=== PATIENT | female | born 1960 | race Hispanic/Latino ===

== ENCOUNTER 2018-02-26 14:21 | Emergency (ER) | payer OTHER, SELFPAY ==
[2018-02-26 14:25] VITALS: BP 148/89; PULSE 101; RESP 21; TEMP 36.4; O2SAT 99
--- NOTE | 2018-02-26 14:28 | ED.NEUROSD ---
HPI - Neuro Symptoms/Deficit General Chief Complaint: Neuro Symptoms/Deficit Stated Complaint: cant see, terrible headache, pressure on right eye Time Seen by Provider: 02/26/18 14:27 Source: patient Mode of arrival: wheelchair Limitations: no limitations History of Present Illness HPI Narrative: Patient is a 58-year-old female who stated that several hours prior to arrival she had a onset of a right-sided headache. She also complains of double vision and also pressure behind her right eye. She states she had similar symptoms a couple days ago but it lasted a very short period of time. Initially was reported that the patient was on anticoagulation however this was not confirmed on the patient does not know if she is taking any blood thinners. She states that the symptoms today were very similar to the symptoms she had a couple days ago however lasted much longer. Before today she had never had any symptoms like this. No prior interventions prior to arrival. Patient states nothing makes the symptoms worse or better. Review of Systems Constitutional Denies fever(s), Denies frequent falls, Reports headache(s), Denies lethargy and Denies malaise Eyes Reports diplopia, Denies irritation, Denies itchy eyes, Denies loss of vision, Denies seeing flashes, Denies photophobia and Denies spots in vision Comments: Pain behind the right eye ENT Ears, Nose, Mouth, and Throat: Denies dysphagia, Denies vertigo, Denies dizziness, Denies ear discharge, Denies facial pain, Reports headache(s), Denies disequilibrium, Denies sinus pain, Denies sinus pressure and Denies sore throat Cardiovascular Denies chest pain, Denies syncope, Denies leg edema, Denies palpitations and Denies dyspnea Respiratory Denies cough and Denies dyspnea Gastrointestinal Gastrointestinal: Denies abdominal pain, Denies dysphagia, Denies nausea and Denies vomiting Genitourinary Denies dysuria Musculoskeletal Denies myalgias and Denies arthralgias Integumentary/Breasts Denies rash Neurologic Denies confusion, Denies vertigo, Denies dizziness, Denies syncope, Denies frequent falls, Reports headache(s), Denies focal weakness, Denies loss of vision, Denies radicular pain, Denies sensory deficit, Denies paresthesias and Denies disequilibrium Psychiatric Denies confusion Endocrine Denies palpitations Hematologic/Lymphatic Denies easy bleeding and Denies easy bruising Allergic/Immunologic Denies itchy eyes PFSH Medical History Hypertension (Acute) Surgical History No pertinent past surgical history (Acute) Social History lives independently: Yes Exam Initial Vital Signs Initial Vital Signs: Vital Signs Temperature 97.6 F 02/26/18 14:25 Pulse Rate 101 H 02/26/18 14:25 Respiratory Rate 21 02/26/18 14:25 Blood Pressure 148/89 H 02/26/18 14:25 Pulse Oximetry 99 02/26/18 14:25 Const General: cooperative, comfortable, well developed, well groomed and No acute distress Orientation: alert, awake and oriented x3 Limitations: mental status not altered HENMT Head: normal to inspection and normocephalic Ears: hearing grossly normal bilaterally Nose: external nose normal Face and sinus: normal facial exam Eyes Conjunctivae: conjunctivae normal Sclera: sclerae normal Pupils: PERRL EOM: EOM intact bilaterally Other: Patient with binocular diplopia. Her symptoms resolved with covering each eye independently. No nystagmus. With covering of the left eye patient's symptoms resolved. Right eye does not move. When I uncover the left eye it does appear that the left eye is in a superior gaze which then improved somewhat but causes double vision. When I cover her right eye or double vision resolves. With uncovering of the right eye there is no deviation. Resp Effort & Inspection: normal respiratory effort Auscultation: clear to auscultation bilaterally Cardio Rate: regular rate Rhythm: regular rhythm Pulses: radial pulses present GI Inspection: normal to inspection and non-distended Palpation: soft Skin General: no rashes or lesions noted Neuro General: alert, awake and oriented x3 Cranial Nerves: other (Please see I section for description of I findings. Otherwise cranial nerves unremarkable) Cognition: normal cognition Speech: speech normal Gait: ataxic Motor: muscle tone normal throughout Sensory Exam: no sensory deficits noted Extrem General: normal to inspection and capillary refill normal Psych Appearance: grossly normal and well kempt Course Orders Ordered: ED Orders 02/26/18 14:29 CT head/brain wo con Stat 02/26/18 14:50 Basic Metabolic Panel Stat Complete Blood Count AUTO DIFF Stat Partial Thromboplastin Time Stat Prothrombin Time INR Stat 02/26/18 15:44 MR head/brain wo/w con Stat Discontinued Medications Acetaminophen (Tylenol) 975 mg PO NOW ONE Stop: 02/26/18 15:45 Last Admin: 02/26/18 15:55 Dose: 975 mg Diazepam (Valium) 5 mg PO NOW ONE Stop: 02/26/18 15:52 Last Admin: 02/26/18 17:08 Dose: Not Given Diphenhydramine HCl (Benadryl) 50 mg IV NOW ONE Stop: 02/26/18 15:58 Last Admin: 02/26/18 16:06 Dose: 50 mg Sodium Chloride (Normal Saline 0.9%) 1,000 mls @ 1,000 mls/hr IV BOLUS ONE Stop: 02/26/18 15:27 Last Admin: 02/26/18 18:31 Dose: 1,000 mls/hr Vital Signs - 8 hr 02/26/18 14:25 02/26/18 14:55 02/26/18 15:45 Temperature 97.6 F Pulse Rate 101 H 97 H 92 H Respiratory Rate 21 18 15 Blood Pressure 148/89 H Blood Pressure [Left Arm] 140/77 129/77 Pulse Oximetry 99 98 97 02/26/18 16:44 02/26/18 18:00 Temperature Pulse Rate 82 76 Respiratory Rate 16 16 Blood Pressure Blood Pressure [Left Arm] 123/75 118/73 Pulse Oximetry 99 98 MDM - Neuro Symptoms/Deficit Lab Data Attestation: I reviewed the patient's lab results. Result diagrams: 02/26/18 14:50 02/26/18 14:50 Lab Results 02/26/18 02/26/18 02/26/18 Range/Units 14:50 14:50 14:50 WBC 11.0 (4.5-11.0) X10^3/uL RBC 4.99 (4.0-5.2) X10^6/uL Hgb 13.1 (12.0-16.0) g/dL Hct 38.7 (36-46) % MCV 77.5 L (80-100) fL MCH 26.2 (26-34) PG MCHC 33.8 (30-36) % RDW 14.2 (11.6-14.8) % Plt Count 308 (150-400) X10^3/uL Neut % (Auto) 67.3 (50-75) % Lymph % (Auto) 25.3 (25-40) % [place] % (Auto) 5.3 (3-14) % Eos % (Auto) 1.3 L (2-4) % Baso % (Auto) 0.8 (0-2) % Neut # (Auto) 7400 H (5039-6101) /uL PT 11.8 (10.1-12.7) SECONDS INR 1.0 (0.9-1.3) APTT 25 L (26.4-36.2) SECONDS Sodium 137 (137-145) mmol/L Potassium 4.1 (3.4-5.1) mmol/L Chloride 101 (98-107) mmol/L Carbon Dioxide 21 L (22-32) mmol/L BUN 9 (7-17) mg/dL Creatinine 0.50 L (0.52-1.04) mg/dL Estimated GFR > 60.0 (>60) mL/min BUN/Creatinine Ratio 18.0 (6-22) Glucose 356 H (80-110) mg/dL Calcium 9.1 (8.4-10.2) mg/dL Imaging Data CT scan - head: Radiologist's impression: PROCEDURE: CT HEAD/BRAIN WO CON INDICATIONS: possible stroke TECHNIQUE: Noncontrast 4.5 mm thick angled axial sections acquired from the foramen magnum to the vertex, with coronal and sagittal reformats. For radiation dose reduction, the following was used: automated exposure control, adjustment of mA and/or kV according to patient size. COMPARISON: [facility], CT, BRAIN W/O CONTRAST, 11/28/2011, 15:16. FINDINGS: Image quality: Excellent. CSF spaces: Basal cisterns are patent. No extra-axial fluid collections. Ventricles are normal in size and shape. Brain: No midline shift. No intracranial masses or hemorrhage. [place]-white matter interface is normal. There is calcified plaque of the intracranial vasculature. There is mild subcortical and periventricular white matter hypoattenuation, which is nonspecific but can be seen with chronic microvascular ischemic changes. Skull and face: Calvarium and visualized facial bones are intact, without suspicious lesions. Sinuses: Visualized sinuses and mastoids are clear. IMPRESSION: No acute intracranial abnormality. Dictated by: Galileo Flor M.D. on 02/26/2018 at 15:23 Approved by: Galileo Flor M.D. on 02/26/2018 at 15:26 MRI - head: Radiologist's impression: PROCEDURE: MR HEAD/BRAIN WO/W CON INDICATIONS: diplopia eval for CVA TECHNIQUE: Noncontrast axial T1 spin echo, axial T2 fast spin echo, sagittal and axial FLAIR, coronal T2 fast spin echo, axial gradient echo, axial diffusion and ADC through the brain. After the administration of contrast, axial and coronal 3D VIBE or T1 spin echo with fat saturation through the brain. COMPARISON: [facility], MR, STROKE PROTOCOL (PN), 11/28/2011, 19:34. FINDINGS: Image quality: Partially degraded by motion artifact. CSF Spaces: Basal cisterns are patent. No extra-axial fluid collections. Ventricles are normal in size and shape. Brain: No midline shift. No intracranial bleeds or masses. No abnormal intracranial enhancement. The brainstem appears normal. Diffusion-weighted images demonstrate no acute ischemic insults. Mild subcortical and periventricular white matter T2 signal hyperintensity is nonspecific but can be seen with chronic microvascular ischemic changes. Normal intravascular flow voids are present. Skull and face: Calvarial marrow is normal in signal. Orbits appear normal. Sinuses: Sinuses and mastoids appear clear. IMPRESSION: No MRI evidence of acute infarct. Dictated by: Galileo Flor M.D. on 02/26/2018 at 17:19 ECG Data Attestation: I personally reviewed and interpreted this ECG as follows: Prior ECG tracings: not available for review Interpretation: Sinus rhythm Ventricular rate 88 LVH Normal QRS Normal QTC No ST T wave changes MDM Narrative Medical decision making narrative: Patient reported complete resolution of her symptoms within a very short period of time after the MRI. She had a complete normal neurologic exam after the resolution of her symptoms. She states she felt much better. MRI shows no signs of acute infarct. CT scan was unremarkable. The rest of her lab workup and EKG were unremarkable. I discussed the case with Dr. Farley with [facility] who agreed with the plan of discharging the patient home however follow-up with a primary care doctor. I did discuss this with the patient. She was given return precautions. She expressed understanding and agreement with plan. Discharge Plan Departure Patient Disposition: Home Clinical Impression: Diplopia, Headache Instructions: DI for Double Vision Activity Restrictions/Additional Instructions: I do recommend that you continue all of your medications as directed. I recommend that tomorrow you contact your primary care doctor for a follow-up. Return to the emergency department for any new or worsening symptoms
[2018-02-26 14:55] VITALS: BP 140/77; PULSE 97; RESP 18; O2SAT 98
[2018-02-26 15:00] LABS: Add Manual Diff / Slide Review NO; Basophils Percent Auto 0.8 % (0-2); Eosinophils Percent Auto 1.3 % (2-4); Hematocrit 38.7 % (36-46); Hemoglobin 13.1 g/dL (12.0-16.0); Lymphocytes Percent Auto 25.3 % (25-40); Mean Corpuscular HGB Conc 33.8 % (30-36); Mean Corpuscular Hemoglobin 26.2 PG (26-34); Mean Corpuscular Volume 77.5 fL (80-100); Monocytes Percent Auto 5.3 % (3-14); Neutrophils Absolute Auto 7400 /uL (1500-7000); Neutrophils Percent Auto 67.3 % (50-75); Platelet Count 308 X10^3/uL (150-400); Red Blood Cell Count 4.99 X10^6/uL (4.0-5.2); Red Cell Distribution Width 14.2 % (11.6-14.8)
[2018-02-26 15:05] LABS: Prothrombin Time 11.8 SECONDS (10.1-12.7)
--- NOTE | 2018-02-26 15:06 | PC.NURSE ---
Patient presents with double vision. Unsteady on feet when transferring to bed. Sudden onset of right eye pressure and double vision. Double vision clears when one eye is covered. Left eye drifts up and slightly outward when right eye is covered.
[2018-02-26 15:07] LABS: PTT Partial Thromboplastin Tim 25 SECONDS (26.4-36.2)
[2018-02-26 15:09] LABS: Blood Urea Nitrogen 9 mg/dL (7-17); Calcium 9.1 mg/dL (8.4-10.2); Carbon Dioxide 21 mmol/L (22-32); Chloride 101 mmol/L (98-107); Estimated Glomerular Filt Rate > 60.0 mL/min (>60); Glucose 356 mg/dL (80-110); Potassium 4.1 mmol/L (3.4-5.1); Sodium 137 mmol/L (137-145)
[2018-02-26 15:11] LABS: HEMOLYSIS 54 (0-50)
--- NOTE | 2018-02-26 15:44 | DI.MRI.S_ITS ---
PROCEDURE: MR HEAD/BRAIN WO/W CON INDICATIONS: diplopia eval for CVA TECHNIQUE: Noncontrast axial T1 spin echo, axial T2 fast spin echo, sagittal and axial FLAIR, coronal T2 fast spin echo, axial gradient echo, axial diffusion and ADC through the brain. After the administration of contrast, axial and coronal 3D VIBE or T1 spin echo with fat saturation through the brain. COMPARISON: [facility], MR, STROKE PROTOCOL (PN), 11/28/2011, 19:34. FINDINGS: Image quality: Partially degraded by motion artifact. CSF Spaces: Basal cisterns are patent. No extra-axial fluid collections. Ventricles are normal in size and shape. Brain: No midline shift. No intracranial bleeds or masses. No abnormal intracranial enhancement. The brainstem appears normal. Diffusion-weighted images demonstrate no acute ischemic insults. Mild subcortical and periventricular white matter T2 signal hyperintensity is nonspecific but can be seen with chronic microvascular ischemic changes. Normal intravascular flow voids are present. Skull and face: Calvarial marrow is normal in signal. Orbits appear normal. Sinuses: Sinuses and mastoids appear clear. IMPRESSION: No MRI evidence of acute infarct. Dictated by: Galileo Flor M.D. on 02/26/2018 at 17:19 Approved by: Galileo Flor M.D. on 02/26/2018 at 17:29
[2018-02-26 15:45] VITALS: BP 129/77; PULSE 92; RESP 15; O2SAT 97
[2018-02-26] MEDS: ACETAMINOPHEN 325 MG TABLET 975 MG PO (15:55)
[2018-02-26] MEDS: diphenhydrAMINE 50 MG/ML VIAL IV (16:06)
[2018-02-26 16:44] VITALS: BP 123/75; PULSE 82; RESP 16; O2SAT 99
--- NOTE | 2018-02-26 16:47 | PC.NURSE ---
Patient back from MRI. Reports she feels her vision is getting better at times. Some blurry vision and intermittent double vision still present
[2018-02-26 18:00] VITALS: BP 118/73; PULSE 76; RESP 16; O2SAT 98
[2018-02-26] MEDS: SODIUM CHLORIDE 0.9% 1,000 ML 1000 ML IV (18:31)
== END 2018-02-26 19:30 | disposition home or self-care (01) ==
PROVIDERS: Emergency Provider Emergency Medicine
DX: H53.2 Diplopia (principal); R51 Headache
CPT/HCPCS: 36591; 70450; 70553; 80048; 85025; 85610; 85730; 93005; 96361; 96374; 99283; 99285; 99291; A9579; J1200